=== PATIENT | female | born 1985 | race Caucasian/White ===

== ENCOUNTER 2020-11-19 02:27 | Emergency (ER) | payer OTHER ==
[~2020-11-19 02:27] MED LIST: BACLOFEN 10MG T10 MG PO; NAPROXEN500 MG PO
[2020-11-19] MEDS ORDERED: NORCO 5-325 TA1 EACH PO (03:43)
[2020-11-19] MEDS ORDERED: ROBAXIN750 MG PO (03:43)
[2020-11-19] MEDS ORDERED: MEDROL 4MG DOSEP4 MG PO (03:43)
== END 2020-11-19 03:48 | disposition home or self-care (01) ==
LOC: FER 02:27
DX: M54.41 Lumbago with sciatica, right side (principal)
CPT/HCPCS: 99283; J1885; J7512

== ENCOUNTER 2021-04-21 23:23 | Emergency (ER) | payer OTHER ==
[~2021-04-21 23:23] MED LIST changes: +MEDROL 4MG DOSEP4 MG PO; +NORCO 5-325 TA1 EACH PO; +ROBAXIN750 MG PO
[2021-04-22 00:56] LABS: BASOPHIL 0.5 % (0-2); EOSINOPHIL 4.1 % (0-5); HCT 35.8 % (37.0-47.0); HGB 11.7 g/dl (12.5-16.0); LYMPHOCYTE 19.8 % (15-48); MCH 26.5 pg (25.0-31.0); MCHC 32.7 g/dL (32.0-36.0); MCV 81.2 fL (78.0-100.0); MONOCYTE 5.3 % (0-12); MPV 10.2 fL (6.0-9.5); NEUTROPHIL 69.9 % (41-80); NRBC 0; PLT 268 K/uL (150-400); RBC 4.41 M/uL (4.20-5.40); RDW 13.6 % (11.5-14.0); WBC 11.6 K/uL (4.0-10.5)
[2021-04-22 01:20] LABS: LACTIC ACID 0.6 mmol/L (0.4-1.9)
[2021-04-22 01:22] LABS: ALBUMIN 3.7 g/dL (3.4-5.0); BILIRUBIN - TOTAL 0.2 mg/dL (0.2-1.0); BUN/CREAT RATIO (CALC) 16.2 RATIO; C-REACTIVE PROTEIN 3.4 mg/dL (<=0.90); CREATININE 0.74 mg/dL (0.51-0.95); GLOBULIN (CALCULATION) 3.8 g/dL; POTASSIUM 3.5 mmol/L (3.5-5.1); TOTAL PROTEIN 7.5 g/dL (6.4-8.2)
[2021-04-22 01:43] LABS: BILIRUBIN NEGATIVE (NEGATIVE); BLOOD NEGATIVE Ery/uL (NEGATIVE); CLARITY CLEAR (CLEAR); COLOR YELLOW (YELLOW); GLUCOSE (U) NORMAL (NORMAL); LEUKOCYTES NEGATIVE Leu/uL (NEGATIVE); NITRITE NEGATIVE (NEGATIVE); PROTEIN NEGATIVE (NEGATIVE); UROBILINOGEN 0.2 mg/dL (0.2-1.0); pH 7.5 (5.0-9.0)
[2021-04-22] MEDS ORDERED: BENTYL10 MG PO (03:04)
[2021-04-22] MEDS ORDERED: NORCO 5-325 TA1 EACH PO (03:04)
== END 2021-04-22 03:26 | disposition home or self-care (01) ==
LOC: FER 23:23
PROVIDERS: Emergency Medicine Emergency Medical Services
DX: R10.84 Generalized abdominal pain (principal); K21.9 Gastro-esophageal reflux disease without esophagitis; Z90.49 Acquired absence of other specified parts of digestive tract; Z79.899 Other long term (current) drug therapy
CPT/HCPCS: 36415; 80053; 81003; 83605; 83690; 85025; 86140; J1885; J2405; J7030; Q9967

== ENCOUNTER → 2022-03-08 | Day surgery (SDC) | payer OTHER ==
[~2022-03-08] VITALS: Ht 149.9 cm; Wt 97.5 kg
[~2022-03-08] MED LIST changes: +BENTYL10 MG PO; +PRILOSEC20 MG PO; +ZYRTEC10 MG PO
[2022-03-08 11:37] LABS: HCG (URINE) SCREEN NEGATIVE (NEGATIVE)
== END | disposition home or self-care (01) ==
LOC: FAS 11:10
PROVIDERS: Obstetrics & Gynecology
DX: N93.9 Abnormal uterine and vaginal bleeding, unspecified (principal); N85.00 Endometrial hyperplasia, unspecified; G93.2 Benign intracranial hypertension; K21.9 Gastro-esophageal reflux disease without esophagitis; E66.01 Morbid (severe) obesity due to excess calories; Z68.41 Body mass index [BMI] 40.0-44.9, adult; Z79.899 Other long term (current) drug therapy
CPT/HCPCS: 84703; 86850; 86900; 86901; J1885; J2250; J2405; J2704; J3010; J7120